=== PATIENT | female | born 1970 | race Hispanic/Latino ===

== ENCOUNTER 2017-01-06 06:52 | Day surgery (SDC) | payer MEDICAID ==
[~2017-01-06 06:52] MED LIST: NACL 0.9% IR ONE
--- NOTE | 2017-01-06 08:19 | Discharge Summary ---
Short Stay Discharge Plan Activity: no restrictions Weight Bearing Status: Full Weight Bearing Diet: regular Wound: remove dressing (72hrs) Follow up with: ROSALIA ABARCA JR, MD [Staff Physician] - 7 Days
--- NOTE | 2017-01-06 08:20 | Short Stay Summary ---
Short Stay Documentation Date of service: 01/06/17 - Allergies and Medications Current Medications: Allergies Penicillins Adverse Reaction (Verified 01/01/17 13:16) Shortness of Breath Home Medications Medication Instructions Recorded Confirmed Last Taken Type Cyclobenzaprine [Flexeril] 10 mg PO BID 01/01/17 01/01/17 Unknown History Ergocalciferol(Vitamin D2)(Nf) 1.25 mg PO QWEEK 01/01/17 01/01/17 Unknown History [Vitamin D (Nf)] Gabapentin [Neurontin] 800 mg PO BID 01/01/17 01/01/17 12/29/16 History Ibuprofen [Motrin] 800 mg PO Q8HR PRN 01/01/17 01/01/17 Unknown History QUEtiapine [SEROquel] 25 mg PO QHS 01/01/17 01/01/17 Unknown History Simvastatin [Zocor TAB] 10 mg PO QHS 01/01/17 01/01/17 Unknown History Venlafaxine Xr [Effexor Xr] 150 mg PO QDAY 01/01/17 01/01/17 Unknown History - Brief post op/procedure progress note Date of procedure: 01/06/17 Pre-op diagnosis: Macromastia Post-op diagnosis: same Procedure: Shekhar. Breast Reduction Surgeon: ROSALIA ABARCA JR Estimated blood loss: 50-100ml Specimen disposition: to lab Condition: stable - Disposition Condition at discharge: Good Disposition: DC-01 TO HOME OR SELFCARE Short Stay Discharge Plan Follow up with: ROSALIA ABARCA JR, MD [Staff Physician] - 7 Days
--- NOTE | 2017-01-06 08:55 | Anesthesia Consultation ---
Anesthesia Consult and Med Hx Date of service: 01/06/17 - Airway Anesthetic Teeth Evaluation: Chipped (front central ) ROM Head & Neck: Adequate Mental/Hyoid Distance: Adequate Mallampati Class: Class II Intubation Access Assessment: Probably Good - Pulmonary Exam CTA: Yes - Cardiac Exam Cardiac Exam: RRR - Pre-Operative Health Status ASA Pre-Surgery Classification: ASA2 Proposed Anesthetic Plan: General - Pre-Anesthesia Comment Pre-Anesthesia Comments: Restless leg syndrome - Pulmonary Hx Smoking: Yes (VAPOR CIGS/STOPPED TOBACCO CIGS 4 MOS AGO) - Central Nervous System Hx Back Pain: Yes
--- NOTE | 2017-01-06 08:56 | Anesthesia Day of Surgery ---
Anesthesia Day of Surgery - Day of Surgery Patient Examined: Yes Patient H&P Reviewed: Yes Patient is NPO: Yes
[2017-01-06] MEDS ORDERED: LACTATED RINGERS 1,000 ML IV SCH ×2 (09:00→11:00)
[2017-01-06] MEDS ORDERED: PEPCID PO NR (09:00)
[2017-01-06] MEDS ORDERED: VERSED IV NR (09:00)
[2017-01-06] MEDS ORDERED: XYLOCAINE MPF 2% ONE (09:41)
[2017-01-06] MEDS ORDERED: DIPRIVAN 10 MG/ML IV ONE (09:41)
[2017-01-06] MEDS ORDERED: SUBLIMAZE ONE ×3 (09:41→12:00)
[2017-01-06] MEDS ORDERED: DECADRON ONE (09:41)
[2017-01-06] MEDS ORDERED: REGLAN ONE (09:41)
[2017-01-06] MEDS ORDERED: NACL 0.9% IR ONE (09:50)
[2017-01-06 09:52] LABS: Basophils % (Auto) 0.8 % (0.0-1.8); Eosinophils % (Auto) 3.2 % (0.0-4.3); Hematocrit 41.8 % (30.3-42.9); Hemoglobin 14.6 gm/dl (10.1-14.3); Mean Corpuscular HGB Conc 35 % (30-34); Mean Corpuscular Hemoglobin 31 pg (28-32); Mean Corpuscular Volume 90 fl (79-97); Platelet Count 253 K/mm3 (140-440); Red Blood Count 4.64 M/mm3 (3.65-5.03); Red Cell Distribution Width 12.7 % (13.2-15.2); White Blood Count 6.7 K/mm3 (4.5-11.0)
[2017-01-06] MEDS ORDERED: VANCOMYCIN/NS 1 GM/250 ML 1 GM/250 ML BAG IV NR (10:00)
[2017-01-06] MEDS ORDERED: ePHEDrine SULFATE ONE (10:26)
[2017-01-06] MEDS ORDERED: VERSED ONE (10:39)
[2017-01-06] MEDS ORDERED: LACTATED RINGERS 1,000 ML ONE ×2 (10:43→12:13)
[2017-01-06] MEDS ORDERED: ZOFRAN IV PRN (10:59)
[2017-01-06] MEDS ORDERED: ZOFRAN ONE (11:00)
[2017-01-06] MEDS: DILAUDID IV PRN ×3 (13:25→13:55)
--- NOTE | 2017-01-06 14:27 | Post Anesthesia Evaluation ---
- Post Anesthesia Evaluation Patient Participated: Yes Airway Patent: Yes Stable Respiratory Function: Yes Nausea/Vomiting: No Temp > 96.8F: Yes Pain Manageable: Yes Adequeate Hydration: Yes Anesthesia Complications: No
[2017-01-06 14:50] VITALS: BP 115/64
--- NOTE | 2017-01-06 15:40 | Operative Report ---
PREOPERATIVE DIAGNOSIS: Macromastia. POSTOPERATIVE DIAGNOSIS: Macromastia. PROCEDURE: Bilateral reduction mammoplasty. SURGEON: John Sue MD HELP DESK ASSOCIATE: Darvin Flores CSA. FINDINGS: 740 g removed from the left breast, 700 g removed from the right breast. DESCRIPTION OF PROCEDURE: The patient was brought to the operating room and placed on the table in supine position. Following administration of general anesthesia, bilateral breasts were prepped with Betadine solution and draped in the usual sterile manner. A #10 blade scalpel was used to make a circumareolar skin incision followed by de-epithelization of an inferior dermal pedicle. Modified Donaldson pattern skin markings were incised with scalpel, deepened through subcutaneous fat and breast tissue using electrocautery. Skin flaps were raised in standard manner as was fashioning of an inferior central mound pedicle. Breast tissue was resected using the electrocautery along with hemostasis followed by closure over 10 mm Hilario drains using interrupted and running subcuticular 2-0 Monocryl sutures. Mastisol, Steri-Strips, and sterile dressings applied. The patient tolerated the procedure well and returned to recovery room in stable condition. JOB# [id number] FTW/NTS
== END 2017-01-06 15:09 | disposition home or self-care (01) ==
LOC: OR 06:52
PROVIDERS: ATTEND Plastic Surgery
DX: N62 Hypertrophy of breast (principal); F32.9 Major depressive disorder, single episode, unspecified; G25.81 Restless legs syndrome; M19.90 Unspecified osteoarthritis, unspecified site; K08.409 Partial loss of teeth, unspecified cause, unspecified class; F17.290 Nicotine dependence, other tobacco product, uncomplicated; Z87.39 Personal history of other diseases of the musculoskeletal system and connective tissue; Z88.0 Allergy status to penicillin; Z79.899 Other long term (current) drug therapy; Z90.710 Acquired absence of both cervix and uterus; Z98.890 Other specified postprocedural states; Z82.61 Family history of arthritis; Z82.5 Family history of asthma and other chronic lower respiratory diseases; Z82.49 Family history of ischemic heart disease and other diseases of the circulatory system
CPT/HCPCS: 19318; 36415; 82375; 85025; 88305; J1100; J1170; J2250; J2405; J2704; J2765; J3010; J3370; J7120